=== PATIENT | female | born 1995 | race Caucasian/White ===

== ENCOUNTER 2018-10-25 08:02 | Emergency (ER) | payer OTHER ==
[2018-10-25 08:24] VITALS: O2SAT 97
[2018-10-25] MEDS ORDERED: Phenergan 25 MG INJ IV ONE (08:29)
[2018-10-25] MEDS ORDERED: Sodium Chloride 0.9% 1000 ML 1,000 ML IV STA (08:29)
--- NOTE | 2018-10-25 08:30 | ERPHSYRPT ---
- History of Present Illness Time Seen by Provider: 10/25/18 08:26 Historian: patient Exam Limitations: no limitations Patient Subjective Stated Complaint: vomiting yesterday, diarrhea today Triage Nursing Assessment: Pt c/o of vomiting yesterday and diarhhea today, denies vomiting today, tachycardic, pain with palpatation in epigastric area, rates pain 6/10, bowel sounds heard in all 4 quadrants, no other issues at this time Physician History: Pt is 23 yo female with c/o n/v/d that began yest. No vomiting today. Still has diarrhea. Light headed. No fever. No PMH. Timing/Duration: yesterday, sudden, improved Activities at Onset: none Quality: cramping Abdominal Pain Onset Location: epigastric Pain Radiation: no radiation Severity of Pain-Max: mild Severity of Pain-Current: mild Modifying Factors: Improves With: vomiting Associated Symptoms: diarrhea, nausea, vomiting Previous symptoms: no prior history Allergies/Adverse Reactions: No Known Drug Allergies Allergy (Verified 10/25/18 08:24) - Review of Systems Constitutional: No Fever, No Chills Eyes: No Symptoms Ears, Nose, & Throat: No Symptoms Respiratory: No Cough, No Dyspnea Cardiac: No Chest Pain, No Edema, No Syncope Abdominal/Gastrointestinal: Abdominal Pain, Nausea, Vomiting, Diarrhea Genitourinary Symptoms: No Dysuria Musculoskeletal: No Back Pain, No Neck Pain Skin: No Rash Neurological: No Dizziness, No Focal Weakness, No Sensory Changes Psychological: No Symptoms Endocrine: No Symptoms Hematologic/Lymphatic: No Symptoms Immunological/Allergic: No Symptoms All Other Systems: Reviewed and Negative - Past Medical History Pertinent Past Medical History: No - Past Surgical History Past Surgical History: Yes - Social History Smoking Status: Never smoker Exposure to second hand smoke: No Drug Use: none Patient Lives Alone: No - Female History Hx Last Menstrual Period: 10/02/2018 Hx Now: No - Nursing Vital Signs Nursing Vital Signs: Initial Vital Signs Temperature 98.0 F 10/25/18 08:06 Pulse Rate 116 H 10/25/18 08:06 Blood Pressure 116/78 10/25/18 08:06 O2 Sat by Pulse Oximetry 97 10/25/18 08:06 Pain Scale Pain Intensity 5 - Physical Exam General Appearance: mild distress, obese Eye Exam: PERRL/EOMI, eyes nml inspection Ears, Nose, Throat Exam: normal ENT inspection, pharynx normal, moist mucous membranes Neck Exam: normal inspection, non-tender, supple, full range of motion Respiratory Exam: normal breath sounds, lungs clear, No respiratory distress Cardiovascular Exam: regular rate/rhythm, normal heart sounds Gastrointestinal/Abdomen Exam: tenderness (epigastric) Pelvic Exam: not done Rectal Exam: not done Back Exam: normal inspection, normal range of motion, No CVA tenderness, No vertebral tenderness Extremity Exam: normal inspection, normal range of motion, pelvis stable Neurologic Exam: alert, oriented x 3, cooperative, normal mood/affect, nml cerebellar function, sensation nml, No motor deficits Skin Exam: normal color, warm, dry SpO2 Interpretation: normal SpO2: 97 Oxygen Delivery: Room Air Ordered Tests: Active Orders 24 hr Category Date Time Status IV Insertion STAT Care 10/25/18 08:29 Active OBSTR/ACUTE ABDOMEN SERIES Stat Exams 10/25/18 08:30 Taken BMP Stat Lab 10/25/18 09:10 Completed CBC W DIFF Stat Lab 10/25/18 09:10 Completed HCG QUALITATIVE,SERUM Stat Lab 10/25/18 09:10 Completed Medication Summary Generic Name Dose Route Start Last Admin Trade Name Freq PRN Reason Stop Dose Admin Potassium Chloride 20 meq in 100 mls @ 50 mls/hr 10/25/18 09:44 10/25/18 09: 48 Potassium Chloride 20 Meq In Water 100ml IV 10/25/18 11:43 50 mls/hr STAT ONE Administration Discontinued Medications Generic Name Dose Route Start Last Admin Trade Name Freq PRN Reason Stop Dose Admin Sodium Chloride 1,000 mls @ 999 mls/hr 10/25/18 08:29 10/25/18 08:47 Sodium Chloride 0.9% 1000 Ml IV 10/25/18 09:29 999 mls/hr .Q1H1M STA Administration Sodium Chloride Confirm 10/25/18 08:45 Sodium Chloride 0.9% 1000 Ml Administered 10/25/18 08:46 Dose 1,000 mls @ ud .ROUTE .STK-MED ONE Potassium Chloride Confirm 10/25/18 09:44 Potassium Chloride 20 Meq In Water 100ml Administered 10/25/18 09:45 Dose 100 mls @ ud IV .STK-MED ONE Potassium Chloride 40 meq 10/25/18 09:44 10/25/18 10:18 Klor Con 10 Meq PO 10/25/18 09:45 40 meq STAT ONE Administration Potassium Chloride Confirm 10/25/18 09:48 Klor Con 10 Meq Administered 10/25/18 09:49 Dose 40 meq PO .STK-MED ONE Promethazine HCl 12.5 mg 10/25/18 08:29 10/25/18 08:47 Phenergan 25 Mg Inj IV 10/25/18 08:30 12.5 mg STAT ONE Administration Promethazine HCl Confirm 10/25/18 08:45 Phenergan 25 Mg Inj Administered 10/25/18 08:46 Dose 25 mg .ROUTE .STK-MED ONE Lab/Rad Data: Laboratory Result Diagrams 10/25/18 09:10 10/25/18 09:10 Laboratory Results 10/25/18 10/25/18 10/25/18 Range/Units 09:10 09:10 09:10 WBC 8.0 (4.0-10.5) K/mm3 RBC 4.92 (4.1-5.4) M/mm3 Hgb 14.6 (12.0-16.0) gm/dl Hct 44.6 (35-47) % MCV 90.7 (78-100) fl MCH 29.7 (26-32) pg MCHC 32.7 (32-36) g/dl RDW 13.5 (11.5-14.0) % Plt Count 284 (150-450) K/mm3 MPV 9.0 (6-9.5) fl Gran % 76.1 H (36.0-66.0) % Eos # (Auto) 0.02 (0-0.5) Absolute Lymphs (auto) 1.21 (1.0-4.6) Absolute Monos (auto) 0.64 (0.0-1.3) Lymphocytes % 15.2 L (24.0-44.0) % Monocytes % 8.1 (0.0-12.0) % Eosinophils % 0.3 (0.00-5.0) % Basophils % 0.3 (0.0-0.4) % Absolute Granulocytes 6.06 (1.4-6.9) Basophils # 0.02 (0-0.4) Sodium 140 (137-145) mmol/L Potassium 3.0 L (3.5-5.1) mmol/L Chloride 108 H (98-107) mmol/L Carbon Dioxide 20 L (22-30) mmol/L Anion Gap 14.3 (5-15) MEQ/L BUN 12 (7-17) mg/dL Creatinine 0.84 (0.52-1.04) mg/dL Estimated GFR > 60.0 ML/MIN Glucose 134 H (74-106) mg/dL Calcium 8.7 (8.4-10.2) mg/dL Serum , Qual NEGATIVE (Negative) - Progress Progress: improved Progress Note: 10/25/18 10:17 I ordered a 20 mEq potassium rider with IV saline. The patient complained of burning sensation in the IV. The nurse turned the rate down as low as she could and the patient still complained of burning sensation. The patient steadfastly refuses IV potassium. She was given 40 mEq of potassium orally. Counseled pt/family regarding: lab results, diagnosis, rad results - Departure Time of Disposition: 11:40 Departure Disposition: Home Clinical Impression: Gastroenteritis, Hypokalemia Condition: Stable Critical Care Time: No Referrals: DOCTOR,NO FAMILY [Primary Care Provider] - Additional Instructions: You have gastroenteritis and low potassium (hypokalemia). You were given Phenergan 12.5 mg and fluids by IV in the ER. You were given potassium 40 mEq orally in the ER. Take Phenergan 25 mg orally every 8 hours as needed. Start with a liquid diet and advance as tolerated. Follow-up with your primary medical doctor on Saturday. Prescriptions: Promethazine HCl 25 mg [Phenergan 25 mg] 25 mg PO Q8H PRN PRN #10 tablet PRN Reason: Nausea/Vomiting
[2018-10-25] MEDS ORDERED: Phenergan 25 MG INJ ONE (08:45)
[2018-10-25] MEDS ORDERED: Sodium Chloride 0.9% 1000 ML 1,000 ML ONE (08:45)
[2018-10-25 09:23] LABS: BASOPHIL % 0.3 % (0.0-0.4); Basophil (Absolute #) 0.02 (0-0.4); Eosinophil % 0.3 % (0.00-5.0); Eosinophil (Absolute #) 0.02 (0-0.5); Granulocytes % 76.1 % (36.0-66.0); Hematocrit 44.6 % (35-47); Hemoglobin 14.6 gm/dl (12.0-16.0); Lymphocyte (Absolute #) 1.21 (1.0-4.6); Lymphocytes % 15.2 % (24.0-44.0); Mean Cell Volume 90.7 fl (78-100); Mean Corpuscular Hemoglobin 29.7 pg (26-32); Mean Corpuscular Hgb Concent. 32.7 g/dl (32-36); Monocyte (Absolute #) 0.64 (0.0-1.3); Monocytes % 8.1 % (0.0-12.0); Platelet Count 284 K/mm3 (150-450); Red Blood Count 4.92 M/mm3 (4.1-5.4); Red Cell Distribution Width 13.5 % (11.5-14.0)
[2018-10-25 09:38] LABS: ANION GAP 14.3 MEQ/L (5-15); BLOOD UREA NITROGEN 12 mg/dL (7-17); CHLORIDE 108 mmol/L (98-107); Calcium 8.7 mg/dL (8.4-10.2); Carbon Dioxide 20 mmol/L (22-30); Creatinine 1 0.84 mg/dL (0.52-1.04); Glucose 134 mg/dL (74-106); SODIUM 140 mmol/L (137-145)
[2018-10-25] MEDS ORDERED: POTASSIUM CHLORIDE 20 mEq IN WATER 100ML 20 MEQ/100 ML BAG IV ONE (09:44)
[2018-10-25] MEDS ORDERED: POTASSIUM CHLORIDE 20 mEq IN WATER 100ML 100 ML IV ONE (09:44)
[2018-10-25] MEDS ORDERED: Klor Con 10 MEQ PO ONE ×2 (09:44→09:48)
[2018-10-25 11:58] VITALS: BP 114/77; PULSE 103
--- NOTE | 2018-10-25 17:11 | XRAY ---
Indication: Nausea, vomiting, diarrhea. Comparison: None 2 views of the abdomen nonacute and nonobstructed. Solid organs unremarkable. Osseous structures intact with mild double curvature thoracolumbar scoliosis. Single PA chest demonstrates normal heart and lungs. Bony thorax intact. Impression: Negative abdomen. Nonacute one view chest.
== END 2018-10-25 11:58 | disposition home or self-care (01) ==
LOC: ED 08:02
DX: K52.9 Noninfective gastroenteritis and colitis, unspecified (principal); E87.6 Hypokalemia; R42 Dizziness and giddiness; R10.13 Epigastric pain; R11.2 Nausea with vomiting, unspecified
CPT/HCPCS: 36000; 36415; 74022; 80048; 81025; 85025; 96360; 96365; 96374; 96375; 99284; J2550; J3480; A9270-GY

== ENCOUNTER 2022-02-09 00:06 | Emergency (ER) | payer BC, OTHER ==
--- NOTE | 2022-02-09 00:09 | ERPHSYRPT ---
- History of Present Illness Time Seen by Provider: 02/09/22 00:09 Source: patient Exam Limitations: no limitations Physician History: This is an obese right-handed white female who presents with left upper extremity pain. She did not suffer any acute trauma or injury. She feels as though it just aches. She is not sure if she strained a muscle. She has not had a fever. She has no chest pain. She is never had anything like this before. Occurred: other (Present for 1 week) Method of Injury: other (No injury) Quality: aching Severity of Pain-Max: mild (To moderate) Severity of Pain-Current: mild (To moderate) Extremities Pain Location: shoulder: right, arm: right, elbow: right, forearm: right, wrist: right, hand: right Modifying Factors: Improves With: movement Associated Symptoms: none Allergies/Adverse Reactions: No Known Drug Allergies Allergy (Verified 02/09/22 00:15) Travel Risk - International Travel Have you traveled outside of the country in past 3 weeks: No - Coronavirus Screening Are you exhibiting any of the following symptoms?: No Close contact with a COVID-19 positive Pt in past 14-21 Days: No - Review of Systems Constitutional: No Symptoms Eyes: No Symptoms Ears, Nose, & Throat: No Symptoms Respiratory: No Symptoms Cardiac: No Symptoms Abdominal/Gastrointestinal: No Symptoms Genitourinary Symptoms: No Symptoms Musculoskeletal: Other (Left upper extremity pain) Skin: No Symptoms Neurological: No Symptoms Psychological: No Symptoms Endocrine: No Symptoms Hematologic/Lymphatic: No Symptoms Immunological/Allergic: No Symptoms All Other Systems: Reviewed and Negative - Past Medical History Pertinent Past Medical History: No - Past Surgical History Past Surgical History: Yes - Social History Smoking Status: Never smoker Exposure to second hand smoke: No Drug Use: none Patient Lives Alone: No - Nursing Vital Signs Nursing Vital Signs: Initial Vital Signs Temperature 97.9 F 02/09/22 00:16 Pulse Rate 100 H 02/09/22 00:16 Respiratory Rate 24 02/09/22 00:16 Blood Pressure 139/109 02/09/22 00:16 O2 Sat by Pulse Oximetry 99 02/09/22 00:16 Pain Scale Pain Intensity 5 - Physical Exam General Appearance: no apparent distress, alert, anxiety, obese Eyes, Ears, Nose, Throat Exam: normal ENT inspection, moist mucous membranes Neck Exam: normal inspection, non-tender, supple, full range of motion Cardiovascular/Respiratory Exam: chest non-tender, no respiratory distress Abdominal Exam: non-tender Back Exam: normal inspection Shoulder Exam: normal inspection, no evidence of injury, normal ROM, soft tissue tenderness Elbow/Forearm Exam: normal inspection, non-tender, no evidence of injury, normal ROM, soft tissue tenderness Wrist Exam: normal inspection, no evidence of injury, normal ROM, soft tissue tenderness Hand Exam: normal inspection, non-tender, no evidence of injury, normal ROM Neuro/Tendon Exam: normal sensation, normal motor functions, normal tendon functions, responds to pain, no evidence tendon injury Mental Status Exam: alert, oriented x 3 Skin Exam: normal color, warm, dry SpO2 Interpretation: normal O2 Delivery: Room Air Ordered Tests: Active Orders 24 hr Category Date Time Status D-DIMER QUANTITATIVE Stat Lab 02/09/22 00:41 Completed Medication Summary Generic Name Dose Route Start Last Admin Trade Name Freq PRN Reason Stop Dose Admin Cyclobenzaprine HCl 10 mg 02/09/22 00:57 Cyclobenzaprine Hcl 10 Mg Tablet PO 02/09/22 00:58 STAT ONE Lab/Rad Data: Laboratory Results 02/09/22 Range/Units 00:41 D-Dimer 282 (215-500) ng/mL - Progress Progress: unchanged, pain not gone completely Progress Note: 02/09/22 00:34 Medical decision making: This patient did not suffer any acute traumatic injury to her left upper extremity. Her symptoms have been present for a week. She has no significant associated symptoms. She has a palpable radial pulse. There is no evidence of infection. There is no significant swelling to my examination. I do not think this patient needs an x-ray. I do not think it will be helpful. I do think it is reasonable to obtain a D-dimer. If this is significantly elevated we can provide the patient with a single dose of Lovenox subcutaneously and then order an outpatient ultrasound for later this morning. If the D-dimer is normal, we will send a prescription for prednisone and Flexeril to the patient's pharmacy. Counseled pt/family regarding: lab results, diagnosis, need for follow-up - Departure Departure Disposition: Home Clinical Impression: Pain of left upper extremity Condition: Stable Critical Care Time: No Referrals: NGOC REID PA [Primary Care Provider] - Follow up/PCP as directed Additional Instructions: Take your medication as prescribed. Follow-up with your primary care physician for further management. Prescriptions: Cyclobenzaprine HCl 10 mg [Cyclobenzaprine 10 MG] 10 mg PO TID #10 tablet Prednisone 10 mg [Deltasone 10 mg] 10 mg PO TID #12 tablet
[2022-02-09] MEDS ORDERED: Cyclobenzaprine 10 MG PO ONE (00:57)
[2022-02-09 01:03] VITALS: BP 135/91; PULSE 99; O2SAT 100
[2022-02-09] MEDS ORDERED: Cyclobenzaprine 10 MG ONE (01:03)
== END 2022-02-09 01:07 | disposition home or self-care (01) ==
LOC: ED 00:06
DX: M79.602 Pain in left arm (principal); Z79.52 Long term (current) use of systemic steroids
CPT/HCPCS: 36415; 85379; 99283; A9270-GY